=== PATIENT | male | born 1985 | race Caucasian/White ===

== ENCOUNTER 2025-01-29 10:34 | Emergency (ER) | payer OTHER, SELFPAY ==
[2025-01-29 10:38] VITALS: BP 142/86; PULSE 71; RESP 18; TEMP 36.9; O2SAT 97; BMI 31.0
--- NOTE | 2025-01-29 12:01 | ED.EYEPROB ---
HPI - Eye Problem General Chief complaint: Eye Problems Stated complaint: R Eye Swelling/Stye Time Seen by Provider: 01/29/25 11:52 Source: patient Mode of arrival: Ambulatory History of Present Illness HPI Narrative: 39-year-old male presents to the emergency department due to concerns of right eye infection. Patient admits spent a night in longterm last week after being arrested for ?trespassing and resisting arrest. He relays that was not able to replaces contacts while in longterm overnight and has concerns that the unsanitary conditions in the longterm has led to his eye infection. No disturbances in vision. No significant drainage from the eye. He does have pain with moving the eye [id number]. No fever. Patient has discontinued his contacts and has been using his glasses Related Data Previous Rx's ?Medication ?Instructions ?Recorded doxycycline hyclate 100 mg capsule 100 mg PO BID #10 caps 01/29/25 Allergies Allergy/AdvReac Type Severity Reaction Status Date / Time No Known Drug Allergies Allergy Verified 01/29/25 10:38 Review of Systems Review of Systems Narrative: Pertinent ROS obtained and negative except as stated in HPI Patient History Social History Smoking Status: Never smoker Smoking Status: Never smoker Alcohol type: beer Exam Initial Vital Signs Initial Vital Signs: Vital Signs Temperature 98.4 F 01/29/25 10:38 Pulse Rate 71 01/29/25 10:38 Respiratory Rate 18 01/29/25 10:38 Blood Pressure 142/86 H 01/29/25 10:38 Pulse Oximetry 97 01/29/25 10:38 Oxygen Delivery Method Nasal Cannula 01/29/25 10:38 Constitutional: Well appearing, no acute distress Head: NCAT Eye: Right eye over the medial upper lid there is 4 mm sized area of erythema and induration. The conjunctiva on the underside of the eyelid is inflamed as well. No pustule or Head of abscess noted. Normal sclera, normal pupil. EOMI. Pupil equal round reactive to light Cardiovascular: Normal rate Pulmonary: Normal effort Skin: warm and dry, no diaphoresis Neurological: Alert and oriented x3 Course Orders Ordered: ED Orders 01/29/25 10:49 [place] [facility] [place] Vital Signs Vital signs: Vital Signs - 8 hr 01/29/25 10:38 Temperature 98.4 F Pulse Rate 71 Respiratory Rate 18 Blood Pressure 142/86 H Pulse Oximetry 97 Oxygen Delivery Method Nasal Cannula MDM - Eye Problem MDM Narrative Medical decision making narrative: In brief, this is a 39-year-old male who presents with acute right eye pain swelling and redness. He is concerned that he has orbital cellulitis. He is a contact lens user but wearing glasses more recently. Denies any visual disturbance but does have pain with moving his eyes side to side. In chart review: I see patient has no known drug allergies On arrival to the emergency department, the patient is well-appearing in no acute distress. He has normal vital signs. He is nontoxic appearing. Visutal acuity is peformed: 20/30 OD 20/30 OS 20/20 OU in glasses Exam is pertinent for: Small round area of erythema and induration of the medial right upper eyelid that is consistent with stye. I did not appreciate a foreign body. Anterior eyes clear. Normal sclera. Exam is not consistent with orbital cellulitis. Patient is concerned that he may be developing cellulitis and requesting antibiotic. We discussed options of applying warm compress and ?watch and wait versus warm compresses with oral antibiotic as have decided to start doxycycline today. Return precautions discussed and provided prior to discharge Discharge Plan Departure Patient Disposition: Home Clinical Impression: [facility] Instructions: DI for [facility] Activity Restrictions/Additional Instructions: Please apply warm compresses throughout the day. Avoid eye makeup. You may take antibiotic as prescribed if desired due to your concerns for periorbital cellulitis versus watch and wait for lack of improvement with warm compresses and supportive care as we discussed. Prescriptions: New doxycycline hyclate 100 mg capsule 100 mg PO BID Qty: 10 0RF Stand Alone Forms: Patient Portal/API
[2025-01-29 12:34] VITALS: BP 136/76; PULSE 82; RESP 18; TEMP 36.7; O2SAT 99
--- NOTE | 2025-01-29 12:47 | PC.NURSE ---
Patient is meeting with medical staff physician at this time.
--- NOTE | 2025-01-29 13:10 | CM.SWNOTE ---
ED POWERHOUSE LABORER Note: Pt is a 39yo male, currently unhoused in [facility], is seen in the ED for eye issues. Pt is currently staying at the [facility] until , 02/02. Patient reports he recently moved to the area after taking leave from [employer] in [place]. Pt's Primary Care Provider is Dr. Reagan Graham (New patient appt on 04/11 at 11:00am) and insurance is Cross Current. Reviewed chart and discussed with multidisciplinary team pt's medical status and initial discharge needs. ED POWERHOUSE LABORER met w/patient at bedside; introduced self and role. Patient was found in chair, alert and oriented, cooperative with assessment. Patient explained at length about his current situation, he recently moved to [place] and paid for a short term rental and was removed from the property due to some miscommunication with the landlord. POWERHOUSE LABORER provided reflective listening, allowed patient to completely recount events of recent days as pt was assessed to be stressed and a bit anxious/paranoid about who to trust in new environment. Patient spoke compulsively and rapidly. Patient appeared well-kempt and able to take care of himself. Patient explains he has not been able to establish with a PCP yet and has not had his Adderall and other blood pressure medications refilled so he is attempting to manage and cope the best he can. Patient denies SI/HI with this POWERHOUSE LABORER, states his parents called a wellness check and Crisis responder evaluation in the last few days which he does not feel was necessary; attributing to his anxiety and feelings of invalidation by others. POWERHOUSE LABORER provided Basic Needs and Housing resources for [facility], educated on calling 2-1-1 to complete Coordinated Entry assessment and encouraged pt to request a caseworker protective services to assist with housing programs. Plan: Pt medically cleared to discharge to previous living situation and will follow up with PCP on 04/11. CM team will follow closely for coordination of discharge plans. MIKALA Contreras
== END 2025-01-29 13:07 | disposition home or self-care (01) ==
PROVIDERS: Emergency Provider Student in an Organized Health Care Education/Training Program
DX: H00.011 Hordeolum externum right upper eyelid (principal)
CPT/HCPCS: 99281; 99284